=== PATIENT | female | born 1970 | race Caucasian/White ===

== ENCOUNTER 2021-11-22 07:22 | Day surgery (SDC) | payer MEDICAID ==
[~2021-11-22] VITALS: Ht 167.6 cm; Wt 73.0 kg
[2021-11-22] MEDS ORDERED: LOSA25TA41 PO (07:57)
[2021-11-22] MEDS ORDERED: ALPR1TAB7 (07:57)
[2021-11-22] MEDS ORDERED: ATOR40TA72 PO (07:57)
[2021-11-22] MEDS ORDERED: ONDA-104 PO (07:57)
[2021-11-22] MEDS ORDERED: OXYC5TAB2 PO (07:57)
[2021-11-22] MEDS ORDERED: [UNRECOGNIZED DRUG - OTHER] (08:01)
[2021-11-22] MEDS ORDERED: Vitamin D (08:01)
[2021-11-22] MEDS ORDERED: midazolam 1 mg/ML 2ml injection ONE (08:48)
[2021-11-22] MEDS ORDERED: fentaNYL/PF 50MCG/1 ML 2ML syringe ONE (08:48)
[2021-11-22] MEDS ORDERED: LIDOcaine 1%/PF 5ML 10 MG/ML VIAL ONE ×2 (08:48→09:52)
[2021-11-22] MEDS ORDERED: heparin sodium, porcine/PF 100unit/ml 5ML syringe ONE (08:48)
[2021-11-22] MEDS ORDERED: normal saline 1000ml 1,000 ML IV SCH (09:10)
[2021-11-22 09:30] VITALS: BP 91/52
[2021-11-22 10:19] VITALS: BP 118/69
[2021-11-22 10:34] VITALS: BP 126/63
== END 2021-11-22 10:58 | disposition home or self-care (01) ==
LOC: SSTAY O 07:22
PROVIDERS: ATTEND Radiology Diagnostic Radiology
DX: C78.89 Secondary malignant neoplasm of other digestive organs (principal); C78.7 Secondary malignant neoplasm of liver and intrahepatic bile duct; I10 Essential (primary) hypertension; E78.5 Hyperlipidemia, unspecified; Z72.89 Other problems related to lifestyle; Z88.5 Allergy status to narcotic agent; Z79.899 Other long term (current) drug therapy
CPT/HCPCS: 36561; 76937; 77001; 99152; 99153; C1769; C1788; C1894; J1642; J2250; J3010; J3490; J7030; A4620; A9270

== ENCOUNTER 2022-02-02 07:30 | Day surgery (SDC) | payer MEDICAID ==
[~2022-02-02] VITALS: Ht 167.6 cm; Wt 73.4 kg
[2022-02-02] VITALS (8 sets, daily range): BP systolic 99–137; BP diastolic 57–99
[~2022-02-02 07:30] MED LIST: ALPR1TAB7; ATOR40TA72 PO; LOSA25TA41 PO; ONDA-104 PO; OXYC5TAB2 PO; Vitamin D; [UNRECOGNIZED DRUG - OTHER]
[2022-02-02] MEDS ORDERED: albumin 25% 100mL bottle x 1 IV PRN (08:00)
[2022-02-02] MEDS ORDERED: OXYC20TA55 PO (08:05)
[2022-02-02] MEDS ORDERED: LIDOcaine 1%/PF 5ML 10 MG/ML VIAL SQ ONE (08:05)
[2022-02-02] MEDS ORDERED: OXYCONTIN PO (08:06)
[2022-02-02] MEDS ORDERED: Prochlorperazine PO (08:08)
[2022-02-02] MEDS ORDERED: AMOX-580 PO (08:10)
[2022-02-02] MEDS ORDERED: PRED10TA (08:10)
[2022-02-02] MEDS ORDERED: LIDOcaine 1% 30ml preserv. free vial SQ STA (08:54)
== END 2022-02-02 11:09 | disposition home or self-care (01) ==
LOC: SSTAY O 07:30
PROVIDERS: ATTEND Radiology Vascular & Interventional Radiology
DX: R18.8 Other ascites (principal); I10 Essential (primary) hypertension; E78.5 Hyperlipidemia, unspecified; Z72.89 Other problems related to lifestyle; C25.9 Malignant neoplasm of pancreas, unspecified; Z88.6 Allergy status to analgesic agent; Z98.890 Other specified postprocedural states; Z79.899 Other long term (current) drug therapy
CPT/HCPCS: 49083; A6258; A6449

== ENCOUNTER 2022-02-20 06:59 | Day surgery (SDC) | payer MEDICAID ==
[2022-02-20] VITALS (7 sets, daily range): BP systolic 114–131; BP diastolic 61–78
[~2022-02-20] VITALS: Ht 167.6 cm; Wt 77.1 kg
[~2022-02-20 06:59] MED LIST changes: +AMOX-580 PO; -OXYC5TAB2 PO; +OXYCONTIN PO; +PRED10TA; +Prochlorperazine PO; -[UNRECOGNIZED DRUG - OTHER]
[2022-02-20] MEDS ORDERED: albumin 25% 100mL bottle x 1 IV PRN (07:20)
[2022-02-20] MEDS ORDERED: VALA100031 PO (07:25)
[2022-02-20] MEDS ORDERED: OXYC20TA55 PO (07:25)
[2022-02-20] MEDS ORDERED: SPIR25TA5 PO (07:25)
[2022-02-20] MEDS ORDERED: PROC10TA10 PO (07:25)
[2022-02-20] MEDS ORDERED: FURO20TA4 PO (07:25)
[2022-02-20] MEDS ORDERED: LIDOcaine 1%/PF 5ML 10 MG/ML VIAL SQ STA (08:28)
== END 2022-02-20 10:10 | disposition home or self-care (01) ==
LOC: SSTAY O 06:59
PROVIDERS: ATTEND Radiology Vascular & Interventional Radiology
DX: R18.8 Other ascites (principal); I10 Essential (primary) hypertension; E78.5 Hyperlipidemia, unspecified; C25.9 Malignant neoplasm of pancreas, unspecified; Z98.890 Other specified postprocedural states; Z79.899 Other long term (current) drug therapy; Z72.89 Other problems related to lifestyle
CPT/HCPCS: 49083; J3490; P9047; A6258

== ENCOUNTER 2022-03-02 08:41 | Day surgery (SDC) | payer MEDICAID ==
[~2022-03-02 08:41] MED LIST changes: -AMOX-580 PO; +FURO20TA4 PO; +OXYC20TA55 PO; +PROC10TA10 PO; -Prochlorperazine PO; +SPIR25TA5 PO; +VALA100031 PO
[2022-03-02 09:02] VITALS: BP 133/74
[2022-03-02] MEDS ORDERED: midazolam 1 mg/ML 2ml injection ONE (11:08)
[2022-03-02] MEDS ORDERED: fentaNYL/PF 50MCG/1 ML 2ML syringe ONE (11:08)
[2022-03-02] MEDS ORDERED: diphenhydrAMINE 50 mg/ml inj ONE (11:08)
[2022-03-02] MEDS ORDERED: ondansetron/PF 4mg/2ml inj ONE (11:16)
[2022-03-02] MEDS ORDERED: albumin (human) 25% 100 ML IV solution IV ONE ×2 (11:50→12:05)
[2022-03-02 12:00] VITALS: BP 110/54
[2022-03-02 12:15] VITALS: BP 81/58
[2022-03-02 12:30] VITALS: BP 100/64
[2022-03-02 12:45] VITALS: BP 105/62
[2022-03-02 13:00] VITALS: BP 120/67
== END 2022-03-02 13:35 | disposition home or self-care (01) ==
LOC: SSTAY O 08:41
PROVIDERS: ATTEND Radiology Vascular & Interventional Radiology
DX: R18.8 Other ascites (principal); I10 Essential (primary) hypertension; C25.9 Malignant neoplasm of pancreas, unspecified; E78.5 Hyperlipidemia, unspecified; Z98.890 Other specified postprocedural states; Z72.89 Other problems related to lifestyle
CPT/HCPCS: 49418; 99152; 99153; J2250; J2405; J3010; J7030; P9047; 76942; A4620; J1200